=== PATIENT | female | born 1950 | race Hispanic/Latino ===

== ENCOUNTER 2019-03-30 20:23 | Emergency (ER) | payer OTHER, MEDICARE ==
[2019-03-30] MEDS ORDERED: TETANUS/DIPHTHERIA TOXOID [ADULT] 0.5 ML VIAL IM ONE (20:34)
[2019-03-30] MEDS ORDERED: IBUPROFEN 600 MG TABLET ONE (21:02)
[2019-03-30] MEDS ORDERED: LIDOCAINE HCL 1% 20 ML VIAL ONE (21:02)
== END 2019-03-30 21:50 | disposition home or self-care (01) ==
LOC: EDH 20:23
DX: S81.811A Laceration without foreign body, right lower leg, initial encounter (principal); I10 Essential (primary) hypertension; E78.5 Hyperlipidemia, unspecified; W26.8XXA Contact with other sharp object(s), not elsewhere classified, initial encounter; Y93.89 Activity, other specified; Y92.096 Garden or yard of other non-institutional residence as the place of occurrence of the external cause; Y99.8 Other external cause status
CPT/HCPCS: 12034; 73590; 90471; 90714

== ENCOUNTER → 2019-07-26 | Outpatient (CLI) | payer OTHER, MEDICARE ==
[~2019-07-26] MED LIST: REGADENOSON 0.4 MG/5 ML PF SYG IVP SCH
== END | disposition home or self-care (01) ==
LOC: SHCH 08:41
PROVIDERS: ATTEND Internal Medicine Cardiovascular Disease
DX: I10 Essential (primary) hypertension (principal); R07.9 Chest pain, unspecified
CPT/HCPCS: 78452; 93017; 96374; A9500 ×2; J2785

== ENCOUNTER → 2019-09-02 | Outpatient (CLI) | payer OTHER, MEDICARE | END | disposition home or self-care (01) | LOC: SHCH 10:40 | PROVIDERS: ATTEND Internal Medicine Cardiovascular Disease | DX: I34.0 Nonrheumatic mitral (valve) insufficiency (principal); R07.9 Chest pain, unspecified; I10 Essential (primary) hypertension | CPT/HCPCS: 93306 ==

== ENCOUNTER 2020-01-15 18:15 | Observation (INO) | payer OTHER, MEDICARE ==
[~2020-01-15] VITALS: Ht 152.4 cm; Wt 59.9 kg
[2020-01-15] MEDS ORDERED: ASPIRIN 325 MG TABLET ONE (18:54)
[2020-01-15 18:56] LABS: EOSINOPHILS % (AUTO) 3.6 % (0.0-8.0); HEMATOCRIT 40.2 % (36-48); LYMPHOCYTES % (AUTO) 25.9 % (21.0-51.0); MEAN CORPUSCULAR HEMOGLOBIN 27.8 pg (27.0-33.0); MEAN CORPUSCULAR HGB CONC 31.3 g/dL (32.0-36.0); MEAN CORPUSCULAR VOLUME 88.5 fL (79-99); MONOCYTES % (AUTO) 7.3 % (3.0-13.0); NEUTROPHILS % (AUTO) 61.8 % (40.0-77.0); PLATELET COUNT (AUTO) 326 K/uL (130-400); RED BLOOD CELL COUNT(AUTO) 4.54 MIL/uL (4.00-5.50); RED CELL DISTRIBUTION WIDTH 13.2 % (11.0-15.5)
[2020-01-15 19:12] LABS: CREATININE 0.7 mg/dL (0.5-1.5); POTASSIUM 3.9 mmol/L (3.5-5.1)
[2020-01-15 19:22] LABS: ALBUMIN 3.4 g/dL (3.5-5.0); BILIRUBIN,TOTAL 0.4 mg/dL (0.2-1.0); TOTAL PROTEIN, SERUM 7.6 g/dL (6.0-8.3)
[2020-01-15 19:29] LABS: INR 0.95 (0.85-1.15); PARTIAL THROMBOPLASTIN TIME 26.8 SEC (26.3-35.5); PROTHROMBIN TIME 10.3 SEC (9.6-11.6)
[2020-01-15 21:44] VITALS: BP 173/91
[2020-01-15] MEDS ORDERED: ONDANSETRON HCL 4 MG/2 ML VIAL IVP PRN (21:45)
[2020-01-15] MEDS ORDERED: ACETAMINOPHEN 325 MG TAB PO PRN (21:45)
[2020-01-16 00:14] VITALS: BP 138/76
[2020-01-16 02:03] LABS: CREATINE KINASE, TOTAL 58 U/L (21-232); MYOGLOBIN 45 ng/mL (10-92); TROPONIN I < 0.04 ng/mL (0.00-0.06)
[2020-01-16 04:59] VITALS: BP 136/70
[2020-01-16 07:26] LABS: HEMATOCRIT 39.9 % (36-48); MEAN CORPUSCULAR HEMOGLOBIN 28.2 pg (27.0-33.0); MEAN CORPUSCULAR HGB CONC 31.8 g/dL (32.0-36.0); MEAN CORPUSCULAR VOLUME 88.7 fL (79-99); PLATELET COUNT (AUTO) 311 K/uL (130-400); RED CELL DISTRIBUTION WIDTH 13.3 % (11.0-15.5); WHITE BLOOD COUNT (AUTO) 8.1 K/uL (4.8-10.8)
[2020-01-16 07:30] VITALS: BP 129/76
[2020-01-16 07:42] LABS: ALBUMIN 3.4 g/dL (3.5-5.0); BILIRUBIN,TOTAL 0.4 mg/dL (0.2-1.0); CREATININE 0.7 mg/dL (0.5-1.5); POTASSIUM 3.9 mmol/L (3.5-5.1); TOTAL PROTEIN, SERUM 7.5 g/dL (6.0-8.3)
[2020-01-16 07:47] LABS: CREATINE KINASE, TOTAL 59 U/L (21-232); MYOGLOBIN 49 ng/mL (10-92); TROPONIN I < 0.04 ng/mL (0.00-0.06)
[2020-01-16] MEDS ORDERED: ASPIRIN 81MG TAB.CHEW PO SCH (09:00)
[2020-01-16] MEDS ORDERED: PANTOPRAZOLE SODIUM 40 MG TABLET.DR PO SCH (09:00)
--- NOTE | 2020-01-16 10:18 | NUR ---
INITIAL Patient lives with spouse, Boone Sahu, [phone]. No home services or DME. Patient reports that she is able to complete ADL's and drives. PCP is Dr. Aliyah So. Pharmacy is [facility]. DCP is home. Addendum: 01/16/20 at 1019 by ALIYAH BREAUX SS Amended: Links added.
[2020-01-16] MEDS ORDERED: LOSA1TAB54 PO (10:33)
[2020-01-16] MEDS ORDERED: DONE5TAB26 PO (10:33)
[2020-01-16] MEDS ORDERED: ROSU20TA31 PO (10:33)
[2020-01-16] MEDS ORDERED: ASPI-555 PO (10:33)
[2020-01-16] MEDS ORDERED: MEMA10TA55 PO (10:33)
[2020-01-16 11:00] VITALS: BP 146/79
--- NOTE | 2020-01-16 14:48 | NUR ---
[id number] patient signed OSPINA Letter, I faxed OSPINA Letter to [phone] and placed in chart under consent tab
== END 2020-01-16 15:40 | disposition home or self-care (01) ==
LOC: EDH 18:15 → INTOOBSV 20:00 → EDHIP 20:00 → 3DH 21:00
PROVIDERS: ADMIT Internal Medicine Pulmonary Disease; ATTEND Internal Medicine Pulmonary Disease
DX: R07.89 Other chest pain (principal); F41.9 Anxiety disorder, unspecified; I10 Essential (primary) hypertension; E78.5 Hyperlipidemia, unspecified; G30.9 Alzheimer's disease, unspecified; F02.80 Dementia in other diseases classified elsewhere, unspecified severity, without behavioral disturbance, psychotic disturbance, mood disturbance, and anxiety; Z79.82 Long term (current) use of aspirin
CPT/HCPCS: 36415 ×2; 71045 ×2; 80053 ×2; 82550 ×3; 83690; 83735; 83874 ×2; 83880; 84100; 84484 ×3; 85025; 85027; 85610; 85730; 93005; 99285; G0378 ×5